=== PATIENT | female | born 1965 ===

== ENCOUNTER 2024-10-29 06:53 | Day surgery (SDC) | payer BC, SELFPAY ==
[2024-10-22 14:20] VITALS: BMI 25.8
--- NOTE | 2024-10-28 10:52 | W.CON.GYNONC ---
Chief Complaint
-
NA
History of Present Illness
59�year�old W[place] woman presenting for evaluation of a mass referred to me by Dr Hodge. . Patient was in the emergency
room September 06, 2024, she reported that she has been battling a bladder infection, noticed discoloration of her urine, had taken
over�the�counter medications, started to have back pain and abdominal discomfort and felt miserable. She was diagnosed with
pyelonephritis, urine grew E. coli. She had a CT without contrast. CT scan abdomen and pelvis September 07, 2024 shows lungs are
clear, there is mild right hydronephrosis without obvious calculus kidneys are unremarkable. Liver gallbladder pancreas spleen
adrenal glands are normal. Bladder is incompletely distended uterus is unremarkable right ovary appears to be enlarged 7.8 x 5.6
cm this is compressing the urinary bladder and right distal ureter there is a large homogeneous and thin�walled cyst measuring 9
cm Possibly arising from left ovary, there is no free fluid or fluid air. Patient was recommended to follow�up with gynecology. She
was seen on October [address] Ac Gilman, he noted that the CA125 was elevated at 37. Imaging demonstrated a simple
ovarian cyst on the left and a more complex appearing cyst on the right. Given the complex cyst and elevated CA125 he referred her
to [facility]
Patient admits that she does not going regularly for gynecologic visits. She had been seen in October [address] Kumar, IUD was
removed. Apparently this IUD has been in place for over 20 years. Pap smear was done at that time cytology was negative high risk
HPV was negative.
[employer] history 2 term pregnancies delivered by C�section
Past medical history right ankle sprain, pyelonephritis
past surgical history 2 prior C�section
Family history significant for breast cancer maternal grandmother, brain tumor maternal grandmother, mother with hypertension and
arthritis, father with diabetes and coronary artery disease
Social history, , diagnosed with esophageal cancer at age 60 in May 2024. Patient denies
tobacco drug or marijuana use, drinks alcohol socially. She works at sales at [employer]. lives with daughter
she is sexually active, has boyfriend
Screening tests: She has never had a colonoscopy, has not done a mammogram
Medical History
Allergies
Allergies reflect when allergies were last updated in [facility].
No Known Allergies Allergy (Unverified 10/24/24 12:01)
Physical Exam
Physical Exam
Physical Exam
Pelvic Examination:
External normal labia, urethra, anus.
Vagina: Normal mucosa.atrophic changes present, has a difficult time with speculum exam
Cervix: normal appearance, no discharge. nulliparous os
Uterus: normal size. mobile, normal parametria
Adnexa: There is fullness involving the left adnexa, about 10 cm, it is mobile, there is no fixation or nodularity
RVE: no masses or nodularity
General: Well developed, well nourished patient. In no acute distress.
Neck: No thyromegaly. No cervical lymphadenopathy.
Lungs: Clear to auscultation. Good air movement bilaterally.
Cardiac: Regular rate. Regular rhythm. No murmurs appreciated.
Right Breast: No masses or dimpling. No nipple discharge.
Left Breast: No masses or dimpling. No nipple discharge.
Abdomen: Abdomen is soft. Non�tender to palpation. Non�distended.
Extremities: No edema.
Hematologic/Lymphatic: No palpable lymphadenopathy.
Musculoskeletal: Normal range of motion. Strength and Tone are normal.
Skin:Non�jaundiced. No petechia. No purpura.
Neurologic: Speech is fluent. Normal gait and station. Cranial nerves intact.
Results
-
Patient:�Carlos Manuel Gastelum�-�1965�12:00:00�AM
Location:�[facility]
Test�Performed:�CAPW
Ordering�Physician:�Dinorah Baptiste
�����������������������������������������[facility]��
����������������������������������[facility]��[id number]��
Patient:�Heriberto Gastelum���������������������MR#:�[id number]������������
:�1965������Age:�59���Sex:�F������������Visit�Number:�[id number]�����������
Admit�Date:�10/24/24���������������������Patient�Phone:�[phone]������������
Adm�Doctor:�Mia Mendoza���������������������Ordered�By:�Mia Mendoza�����������
Loc:�.[place]���������������������Report�#:�[id number]�����
[address]��
[place]�[address]��
Study�#:�[id number]��
��
Category:�CAT�Scan��������������������������������������������������������Date�of�Service:�10/24/24���
�����������������
Study�Performed:�CT�chest�abd�pelvis�w�IV�con���������������������������������������������������������
����������������������������
��
����������������������������������������REPORT�STATUS:�Signed��
PROCEDURE:�CT�chest�abd�pelvis�w�IV�con��
��
ORDER�DATE:�10/24/2024:40�AM��
��
CLINICAL�HISTORY:���
�pm��
�left�lower�quad�abd�swelling.��
��
COMPARISON:�Ultrasound�pelvis�Nov,�2023.�Abdomen�pelvis�CT�without�contrast�Nov,�
2023..��
��
TECHNIQUE:��
��
Multidetector�CT�images�of�the�chest,�abdomen�and�pelvis�were�obtained�using�automated�exposure�
control���
IV�contrast�was�administered.�Oral�contrast�was�administered.�Sagittal�and�coronal�reformations�were
provided��
��
The�patient�had��one�CT�and�cardiac�nuclear�medicine�studies�in�the�preceding�12�months.��
��
FINDINGS:��
��
Lung�and�Large�Airways,�Pleura:�Mild�hypoventilatory�changes�in�the�left�lung�base.��
Right�upper�lobe�lung�nodule�axial�image�#45�series�#3�measuring�approximately�4�mm.��
Vessels:�The�thoracic�aorta�is�normal�in�caliber..��
Heart:�Normal�size.�No�pericardial�effusion.��
Mediastinum�and�Alice:�within�normal�limits.��
Chest�Wall�and�Lower�Neck:�within�normal�limits.��
Esophagus:�Esophagus�is�grossly�unremarkable��
��
Abdomen:��
Liver:�within�normal�limits.��
Gallbladder:�No�calcified�gallstones.�Normal�caliber�wall.��
Pancreas:�within�normal�limits.��
Spleen:�within�normal�limits.��
Adrenals:�within�normal�limits.��
Kidneys:�within�normal�limits.��
Stomach:�The�stomach�is�grossly�unremarkable.��
Small�Bowel:�Normal�caliber.���
Large�Bowel:�Stool�and�oral�contrast�throughout�the�large�bowel�loops.�Mild�diverticulosis�of�the�
descending�colon�without�CT�evidence�of�acute�diverticulitis��
Mesentery:�No�evidence�of�free�intraperitoneal�air.�Small�amount�of�free�pelvic�fluid.��
Appendix:No�acute�appendicitis.��
Mesenteric�Lymph�Nodes:�No�enlarged�mesenteric�lymph�nodes..��
Retroperitoneum:�Nonspecific�small�retroperitoneal�lymph�nodes�are�noted.��
.��
Vessels:�Abdominal�aorta�is�normal�in�caliber..��
Abdominal�Wall:�within�normal�limits.��
Pelvis:��
Reproductive�Organs:�Stable�mildly�heterogeneous�mass�in�the�right�adnexa�measuring�approximately�16
x�5.5�x�8�cm�measuring�approximately�26�Hounsfield�units�causing�mass�effect�on�the�urinary�bladder.
Additional�adjacent�hypodense�mass�measuring�approximately�9�x�7�x�7�cm�without�change�in�size.�
Grossly�unremarkable�uterus.��
Bladder:�Small�amount�of�free�intraluminal�air�which�may�be�related�to�recent�instrumentation.�
Correlate�with�patient�history.��
Lymphadenopathy:�No�significant�pelvic�lymphadenopathy.��
��
Additional�pelvic�findings:�Small�amount�of�free�pelvic�fluid.��
��
Bones:�Degenerative�changes�at�L5-S1�and�L4-L5.����
��
IMPRESSION:��
��
1.��Stable�cystic�appearing�masses�in�the�pelvis�probably�representing�cystic�neoplasm�arising�from�
the�ovary.�Suggest�further�correlation�with�MRI�pelvis.���
2.��Interval�development�of�small�amount�of�free�pelvic�fluid.��
3.���Small�amount�of�free�intra-abdominal�air�within�the�urinary�bladder�which�may�be�due�to�recent�
instrumentation.��
4.��Right�upper�lobe�solid�lung�nodule.�Recommend�follow-up�per�[employer]�guidelines.��
5.��Additional�findings�above.
CBC With Differential/Platelet�-FinalOrdered by:�Tray Mendoza
WBC 6.7 x10E3/uL 3.4-10.8 [facility]
RBC 5.05 x10E6/uL 3.77-5.28 [facility]
Hgb 14.9 g/dL 11.1-15.9 [facility]
HCT 43.9 % 34.0-46.6 [facility]
MCV 87 fL 79-97 [facility]
MCH 29.5 pg 26.6-33.0 [facility]
MCHC 33.9 g/dL 31.5-35.7 [facility]
RDW Ratio 13.2 % 11.7-15.4 [facility]
Plat 315 x10E3/uL 150-450 [facility]
Neut% 54 % Not Estab. [facility]
Lymph% 35 % Not Estab. [facility]
MONO% 8 % Not Estab. [facility]
EOS% 2 % Not Estab. [facility]
BASO% 1 % Not Estab. [facility]
ANC 3.7 x10E3/uL 1.4-7.0 [facility]
Lymph# 2.4 x10E3/uL 0.7-3.1 [facility]
MONO# 0.5 x10E3/uL 0.1-0.9 [facility]
EOS# 0.1 x10E3/uL 0.0-0.4 [facility]
BASO# 0.0 x10E3/uL 0.0-0.2 [facility]
Immature Granulocytes 0 % Not Estab. [facility]
Immature Grans (Abs) 0.0 x10E3/uL 0.0-0.1 [facility]
Comp. Metabolic Panel (14)�-FinalOrdered by:�Tray Mendoza
Glucose 100High mg/dL 70-99 [facility]
BUN 11 mg/dL 8-27 [facility]
Creat 0.75 mg/dL 0.57-1.00 [facility]
eGFR 91 mL/min/1.73 >59 [facility]
BUN Creat Ratio 15 12-28 [facility]
Sodium 140 mmol/L 134-144 [facility]
Potassium 4.2 mmol/L 3.5-5.2 [facility]
Chloride 101 mmol/L 96-106 [facility]
CO2 24 mmol/L 20-29 [facility]
Calcium 10.1 mg/dL 8.7-10.3 [facility]
Total Protein 7.2 g/dL 6.0-8.5 [facility]
Albumin 4.8 g/dL 3.8-4.9 [facility]
Globulin 2.4 g/dL 1.5-4.5 [facility]
Total Bili 0.7 mg/dL 0.0-1.2 [facility]
Alk Phos 66 IU/L 44-121 [facility]
AST 18 IU/L 0-40 [facility]
ALT 23 IU/L 0-32 [facility]
Urinalysis, Complete�-PreliminaryOrdered by:�Tray Mendoza
Sp [place] WILL FOLLOW [facility]
ph WILL FOLLOW [facility]
Color WILL FOLLOW [facility]
Appearance WILL FOLLOW [facility]
WBC Esterase WILL FOLLOW [facility]
Protein [Presence] WILL FOLLOW [facility]
Glucose (urine) WILL FOLLOW [facility]
Ketone WILL FOLLOW [facility]
Blood WILL FOLLOW [facility]
Bilirubin (UA) WILL FOLLOW [facility]
Urobil WILL FOLLOW [facility]
Nitrite WILL FOLLOW [facility]
Microscopic Examination WILL FOLLOW [facility]
Microscopic Examination WILL FOLLOW [facility]
Prothrombin Time (PT)�-FinalOrdered by:�Tray Mendoza
INR 1.0 0.9-1.2 [facility]
���������������Reference�interval�is�for�non-anticoagulated�patients.
��������������������������������������������������������������������.
���������������Suggested�INR�therapeutic�range�for�Vitamin�K
���������������antagonist�therapy:
������������������Standard�Dose�(moderate�intensity
���������������������������������therapeutic�range):�������2.0�-�3.0
������������������Higher�intensity�therapeutic�range�������2.5�-�3.5
ProTime 11.0 sec 9.1-12.0 [facility]
CEA�-FinalOrdered by:�Tray Mendoza
CEA 3.0 ng/mL 0.0-4.7 [facility]
��������������������������������������������Nonsmokers����������<3.9
��������������������������������������������Smokers�������������<5.6
��������������������������������������������������������������������.
���������������[facility]�Electrochemiluminescence�Immunoassay
���������������(ECLIA)
��������������������������������������������������������������������.
���������������Values�obtained�with�different�assay�methods�or�kits
���������������cannot�be�used�interchangeably.��Results�cannot�be
���������������interpreted�as�absolute�evidence�of�the�presence�or
���������������absence�of�malignant�disease.
Cancer Antigen (CA) 125�-FinalOrdered by:�Tray Mendoza
CA125 25.8 U/mL 0.0-38.1 [facility]�Electrochemiluminescence�Immunoassay�(ECLIA)
���������������������������������������������������������������������.
Values�obtained�with�different�assay�methods�or�kits�cannot�be
used�interchangeably.��Results�cannot�be�interpreted�as�absolute
evidence�of�the�presence�or�absence�of�malignant�disease.
PTT, Activated�-FinalOrdered by:�Tray Mendoza
aPTT 31 sec 24-33 [facility]
This�test�has�not�been�validated�for�monitoring�unfractionated�heparin
therapy.�aPTT-based�therapeutic�ranges�for�unfractionated�heparin
therapy�have�not�been�established.�For�general�guidelines�on
Heparin�monitoring,�refer�to�the�[facility]�Directory�of�Services.
TSH reflex to T4F�-FinalOrdered by:�Tray Mendoza
TSH 1.870 uIU/mL 0.450-4.500 [facility]
Impression / Plan
-
I spoke with the patient and explained that findings on the CT so far indicates presence of a large cystic mass arising from the left
ovary, this mass has very much benign appearance. She does have a mass on the right ovary or right side of the abdomen, on the
ultrasound imaging this is commented as a right septated cyst. Exact nature of this is unclear. CT scan was done without any oral
or IV contrast and suffers from poor quality however it was appropriate given the circumstances and was probably done for
evaluation of nephrolithiasis. My recommendations are as follows #1 patient should undergo additional blood test Including CMP
CBC CA125 CEA, and a repeat urinalysis and culture to ensure resolution of previously diagnosed UTI
#2 CT of chest abdomen and pelvis will be done with IV and oral contrast I am hoping to better evaluate the upper abdomen and
chest to ensure she does not have any evidence of metastatic disease in the abdomen as this changes the management if there is
obvious malignant process ongoing.
#3 I have asked her to see her primary care physician for a preoperative medical evaluation and
clearance
#4 the patient's abdominal pain symptoms appears to be somewhat exaggerated and not consistent with the findings on the CT and
ultrasound and examination today. It is unclear to me as whether she has some other process that is leading to the abdominal pain
nevertheless I do believe she needs to proceed with surgery for definitive management
#5 the patient will be scheduled to undergo robotic assisted exploration of the abdomen with plan for total laparoscopic
hysterectomy bilateral salpingo�oophorectomy, we discussed that the ovarian masses will be placed in endoscopic bag and
hopefully extracted through the vagina and if not she will need a mini laparotomy for extraction of specimens. Frozen section will be
obtained, if there is any evidence of malignancy additional staging procedures to include but not limited to pelvic and aortic lymph
node dissection, peritoneal biopsies, examination of bowel and possible appendectomy and omentectomy will need to be
performed.
Risks of the procedure including infection bleeding injury to adjacent organs DVT pulmonary embolism and cardiovascular
complications were discussed and reviewed.
[2024-10-29] VITALS (10 sets, daily range): BP systolic 112–147; BP diastolic 62–90; BMI 25.8
[2024-10-29] MEDS: NORMOSOL-R/PLASMALYTE-A 1000 IV (10:00)
[2024-10-29] MEDS: TYLENOL 1000 MG PO (10:18)
[2024-10-29] MEDS: NEURONTIN 300 MG PO (10:18)
[2024-10-29] MEDS: CELEBREX 200 MG PO (10:18)
[2024-10-29] MEDS: HEPARIN 5000 UNITS SC (10:18)
--- NOTE | 2024-10-29 16:15 | OR.RPT ---
Operative Report
Operative Report
Date of procedure: October 29, 2024
Preoperative diagnosis: Bilateral pelvic mass
Postoperative diagnosis: Left ovary with benign fibroma and simple cyst
Procedure: Robotic assisted total laparoscopic hysterectomy, bilateral salpingo-oophorectomy, tap block, pelvic and right diaphragmatic washings
Surgeon:Rashad Mendoza
Assist: Vera Green PA-C
Estimated blood loss: 50 cc
Anesthesia: General Endotracheal intubation
Complication: None
Specimen: Left tube and ovary, uterus and cervix with right tube and ovary, pelvic and right diaphragmatic washings
Procedure in detail: This patient was brought to the operating room for definitive management of masses in the pelvis according to imaging studies recently performed. Upon arrival to the operating room she was placed in supine position general
anesthesia was administered she was intubated without any difficulty, she was placed in lithotomy position using yellowfin stirrups. Arms were wrapped in foam and placed along the patient's sides bilaterally protecting across all joints. Neck and
shoulders were protected with foams. The patient was prepped and draped on the abdomen perineum and vagina she was draped. Timeout procedure was carried out and she received Ancef and Flagyl and had received prophylactic dose of heparin in the
preop region. Tena catheter was inserted under sterile condition to drain the bladder. The cervix was identified grasped and cervical canal was dilated. Uterine manipulator with a 3.0 cm HALI ring was placed around the cervix and vaginal cuff
occluder was insufflated. Attention was turned abdominally, Veress needle was inserted just below the left subcostal margin. 8 mm robotic port was introduced 25 cm cephalad to symphysis pubis into the peritoneal cavity. Under direct visualization
8 mm robotic ports were placed right and left upper quadrants and right and left lateral abdomen. Survey of the upper abdomen reveals liver spleen stomach omentum right and left diaphragms to be normal. Following this washings were collected from
the right subdiaphragmatic space. Tap block was performed with combination of ropivacaine and Decadron injected on the right and left side under direct visualization above the peritoneum 2 fingerbreadths below right and left subcostal margins as
well as right and left lateral abdomen. Patient was placed in Trendelenburg at 28 degrees, robotic system was docked. Washings were collected from posterior cul-de-sac and submitted for pelvic washings. The right tube and ovary appeared to be
essentially normal and atrophic the left ovary had a large fibroma as well as a simple cystic area just adjacent to it both round ligaments were sealed and divided anterior and posterior leaves of the broad ligament resected open both IP ligaments
were rare isolated, course of ureter was visualized a window was created in the avascular space between the IP ligament and ureters. Both IP ligaments were sealed 3 times and divided the left tube and ovary was then placed in a 10/15 mm endoscopic
bag to be retrieved later. Bladder flap was sharply developed and advanced below the cervicovaginal junction uterine arteries were skeletonized bilaterally uterine arteries followed by cardinal ligaments followed by uterosacral ligaments were
sealed and divided circumferential incision was made around the HALI ring until the specimen was completely detached. We went ahead and removed the uterus and cervix along with right tube and ovary and submitted for regular pathology. Next the bag
containing the left tube and ovary was brought through the vagina, I opened the bag and created fragments of the solid component of the tumor which clinically appeared like a fibroma and eventually the specimen was delivered within the bag. This
was sent for frozen section which returned back as fibroma plus a simple cyst of ovary with no evidence of malignancy. Vaginal cuff was closed with 0 Vicryl suture ligature in a [id number] fashion incorporating uterosacral ligaments
bilaterally. V-Loc suture was used to close the cuff in a bidirectional manner starting from right to left and back to the right side. We irrigated the pelvis and all pedicles were dry given the fact that there was no evidence of malignancy on
frozen section I did not perform any additional staging procedures pneumoperitoneum was released a 12 mm port site on the right lower quadrant was closed with a figure of 8 fashion 0 Vicryl suture using Navarro-Mia system. Following this all
skin incisions were closed with 4-0 Monocryl in a subcuticular fashion. Patient was awakened extubated returned back to recovery room awake and alert and extubated condition. Counts of labs instruments and needle was correct x 2. I was present
and scrubbed for entire procedure as dictated above.
Disposition: To PACU alert awake extubated
== END 2024-10-29 15:55 | disposition home or self-care (01) ==
LOC: SDS 06:53
PROVIDERS: ATTENDING PHYSICIAN Obstetrics & Gynecology Gynecologic Oncology; FAMILY PHYSICIAN Family Medicine
DX: D27.1 Benign neoplasm of left ovary (principal); N83.292 Other ovarian cyst, left side; N80.03 Adenomyosis of the uterus; D25.0 Submucous leiomyoma of uterus; N83.291 Other ovarian cyst, right side; N83.8 Other noninflammatory disorders of ovary, fallopian tube and broad ligament
CPT/HCPCS: 58571; 88305; 88309; 88332; 36415; 86850; 86900; 86901; 88112; 88331; 93005